=== PATIENT | male | born 1975 | race Caucasian/White ===

== ENCOUNTER 2018-03-15 11:02 | Emergency (ER) | payer OTHER ==
[2018-03-15 11:31] VITALS: BP 141/92
--- NOTE | 2018-03-15 12:22 | UC ---
Back Pain HPI - HPI Summary HPI Summary: 42 yo male presents with low back pain for the last 3 days. He tells me that he was helping his move a heavy cabinet when he felt a pull in his lower back. Since that time has had severe pain with certain movements and especially when trying to have a bowel movement due to straining. He denies radiation of pain, but does note some intermittent numbness in his anterior thighs b/l. He has been applying heat and ice and taking ibuprofen with minimal relief. 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 Denies loss of bowel/bladder control or saddle anesthesia. - History of Current Complaint Chief Complaint: UCBackPain Stated Complaint: BACK PAIN Hx Obtained From: Patient Severity Initially: Moderate Severity Currently: Moderate Pain Intensity: 7 Pain Scale Used: 0-10 Numeric - Allergies/Home Medications Allergies/Adverse Reactions: Allergies Allergy/AdvReac Type Severity Reaction Status Date / Time bee venom protein (honey bee) Allergy Anaphylatic Verified 03/15/18 11:27 Shock Penicillins Allergy Unknown Verified 03/15/18 11:27 Reaction Details Home Medications: Home Medications EPINEPHrine [Epipen 2-Jose Ramon] 0.3 mg IM SEE INSTRUCTIONS PRN 03/15/18 [History Confirmed 03/15/18] Ibuprofen TAB* [Advil TAB*] 400 mg PO Q6H PRN 03/15/18 [History Confirmed ] PMH/Surg Hx/FS Hx/Imm Hx - Additional Past Medical History Additional PMH: None - Surgical History Surgical History: None - Family History Known Family History: Positive: None - Social History Occupation: Employed Full-time Lives: With Family Alcohol Use: Occasionally Substance Use Type: None Smoking Status (MU): Light Every Day Tobacco Smoker Amount Used/How Often: 1/4 PPD When Did the Patient Quit Smoking/Using Tobacco: Since Age 23 Review of Systems Constitutional: Negative Skin: Negative Respiratory: Negative Cardiovascular: Negative Gastrointestinal: Negative Genitourinary: Negative Neurovascular: Negative Musculoskeletal: Other: - LBP Neurological: Negative Psychological: Negative All Other Systems Reviewed And Are Negative: Yes Physical Exam - Summary Physical Exam Summary: GENERAL: NAD. WDWN. No pain distress. SKIN: No rashes, sores, lesions, or open wounds. NECK: Supple. FROM. Nontender. No lymphadenopathy. CHEST: CTAB. No r/r/w. No accessory muscle use. Breathing comfortably and in no distress. CV: RRR. Without m/r/g. Pulses intact. Cap refill <2seconds MSK: Mild TTP over lumbar paraspinal muscles and right SI. Pain with flexion and extension of spine. Positive SLR on right. Strength 4/5 right LE compared to left. Symmetric dorsiflexion and plantar flexion. FROM B/L LEs. No edema. NEURO: Alert. Sensations intact B/L LEs L3-S1. PSYCH: Age appropriate behavior. Triage Information Reviewed: Yes Vital Signs: Initial Vital Signs Temp 97.9 F 03/15/18 11:25 Pulse 92 03/15/18 11:25 Resp 16 03/15/18 11:25 BP 141/92 03/15/18 11:25 Pulse Ox 98 03/15/18 11:25 Vital Signs Reviewed: Yes Back Pain Course/Dx - Course Course Of Treatment: XR: IMPRESSION: No fracture of the lumbar spine is noted. Pt was given 60mg toradol IM in the clinical setting. Rx for meloxicam and flexeril. Strongly advised to f/u with a new PCP and with PT. Off work this week. - Differential Dx/Diagnosis Provider Diagnoses: Low back pain Discharge - Sign-Out/Discharge Documenting (check all that apply): Patient Departure All imaging exams completed and their final reports reviewed: Yes - Discharge Plan Condition: Stable Disposition: HOME Prescriptions: Cyclobenzaprine TAB* [Flexeril 10 MG TAB*] 10 mg PO TID PRN #28 tab PRN Reason: Pain Meloxicam 7.5 mg PO BID PRN #30 tablet PRN Reason: Pain Patient Education Materials: Low Back Strain (ED), Lower Back Exercises (ED) Forms: *Work Release Referrals: No Primary Care Phys,NOPCP [Primary Care Provider] - [facility] [Outside] Additional Instructions: If you develop a fever, shortness of breath, chest pain, new or worsening symptoms - please call your PCP or go to the ED. Your blood pressure was high at todays visit. Please see your primary provider within 4 weeks for recheck and re-evaluation. 1) Rest and apply ice/heat to your back 2) DO NOT TAKE THE MELOXICAM WITH IBUPROFEN as these medications may interact 3) Please schedule a follow up appointment with physical therapy as soon as possible for further treatment 4) Please schedule an appointment with a primary doctor as soon as possible for recheck - Billing Disposition and Condition Condition: STABLE Disposition: Home
[2018-03-15] MEDS ORDERED: Ketorolac INJ* 60 MG/2 ML VIAL IM ONE (12:34)
--- NOTE | 2018-03-15 12:57 | RAD ---
Indication: Back pain. 5 views of lumbar spine are reviewed. The vertebral bodies appear normal in height. Disc spaces all well-preserved. Pedicles appear intact. IMPRESSION: No fracture of the lumbar spine is noted.
== END 2018-03-15 13:19 | disposition home or self-care (01) ==
LOC: UCCORT 11:02
DX: M54.5 Low back pain (principal); F17.210 Nicotine dependence, cigarettes, uncomplicated; Z88.0 Allergy status to penicillin; Z91.030 Bee allergy status; X50.9XXA Other and unspecified overexertion or strenuous movements or postures, initial encounter; Y93.9 Activity, unspecified; Y92.9 Unspecified place or not applicable
CPT/HCPCS: 72110; 96372; 99202; G0463; J1885

== ENCOUNTER 2019-05-31 07:58 | Emergency (ER) | payer OTHER ==
[2019-05-31 08:11] VITALS: BP 144/83
[2019-05-31] MEDS ORDERED: Ipratropium 0.5MG/2.5ML NEB* 0.5 MG/2.5 ML NEB.SOLN INH ONE (08:38)
[2019-05-31] MEDS ORDERED: Albuterol 2.5 MG/3 ML NEB.SOL* (0.083%) INH ONE (08:38)
[2019-05-31 08:49] LABS: Influenza A Molecular NEGATIVE (Negative); Influenza B Molecular NEGATIVE (Negative)
[2019-05-31] MEDS ORDERED: Albuterol HFA INHALER* 8 gm MDI INH ONE (09:31)
[2019-05-31] MEDS ORDERED: predniSONE TAB* 20 MG PO ONE (09:32)
--- NOTE | 2019-05-31 09:38 | UC ---
Respiratory Complaint HPI - HPI Summary HPI Summary: 43 yo male with onset of cough/fever/chills 4 days ago now wheezing no n/v/d some lateral r and l chest pain with cough cough productive at times hx of bronchitis smoker - History of Current Complaint Chief Complaint: UCGeneralIllness Stated Complaint: COUGH FEVER RIB PAIN Time Seen by Provider: 05/31/19 08:18 Hx Obtained From: Patient Onset/Duration: Gradual Onset Timing: Constant Severity Initially: Moderate Severity Currently: Moderate Pain Intensity: 6 Pain Scale Used: 0-10 Numeric Character: Cough: Nonproductive Aggravating Factors: Nothing Alleviating Factors: Nothing Associated Signs And Symptoms: Positive: Fever - non today, Chills - non today, Wheezing, Nasal Congestion - Allergies/Home Medications Allergies/Adverse Reactions: Allergies Allergy/AdvReac Type Severity Reaction Status Date / Time bee venom protein (honey bee) Allergy Anaphylatic Verified 05/31/19 08:06 Shock Penicillins Allergy Unknown Verified 05/31/19 08:06 Reaction Details Home Medications: Home Medications Acetaminophen [Tylenol] 2 tab PO ONCE 05/31/19 [History Confirmed 05/31/19] D-Methorphan/PE/Acetaminophen [Day Time Cold-Flu Liquid] 1 tab PO ONCE 05/31/19 [History Confirmed 05/31/19] Dm/Acetaminophen/Doxylamine [Nighttime Cold-Flu Liquid] 1 dose PO ONCE 05/31/19 [History Confirmed 05/31/19] PMH/Surg Hx/FS Hx/Imm Hx Previously Healthy: Yes - Surgical History Surgical History: None - Family History Known Family History: Positive: Hypertension - Social History Alcohol Use: Occasionally Substance Use Type: None Smoking Status (MU): Light Every Day Tobacco Smoker Amount Used/How Often: 1/2 PPD When Did the Patient Quit Smoking/Using Tobacco: Since Age 23 Review of Systems All Other Systems Reviewed And Are Negative: Yes Constitutional: Positive: Fever, Chills, Fatigue Skin: Positive: Negative Eyes: Positive: Negative ENT: Positive: Sinus Congestion Respiratory: Positive: Cough Cardiovascular: Positive: Negative Gastrointestinal: Positive: Negative Genitourinary: Positive: Negative Motor: Positive: Negative Neurovascular: Positive: Negative Musculoskeletal: Positive: Negative Neurological: Positive: Negative Psychological: Positive: Negative Physical Exam Triage Information Reviewed: Yes Appearance: Well-Appearing, No Pain Distress, Well-Nourished Vital Signs: Initial Vital Signs Temp 98.4 F 05/31/19 08:07 Pulse 87 05/31/19 08:07 Resp 16 05/31/19 08:07 BP 144/83 05/31/19 08:07 Pulse Ox 98 05/31/19 08:07 Vital Signs Reviewed: Yes Eyes: Positive: Conjunctiva Clear ENT: Positive: Nasal congestion, Nasal drainage, Uvula midline. Negative: Tonsillar swelling, Tonsillar exudate, Muffled voice Dental: Positive: Percussion Tenderness @ Neck: Positive: Supple, Nontender, No Lymphadenopathy Respiratory: Positive: No respiratory distress, No accessory muscle use, Wheezing Cardiovascular: Positive: RRR, No Murmur Musculoskeletal: Positive: ROM Intact, No Edema Neurological: Positive: Alert Psychological Exam: Normal Skin Exam: Normal Diagnostics - Laboratory Lab Results: influenza (-) - Radiology No standard instances Radiology Interpretation Completed By: Radiologist Summary of Radiographic Findings: sigmata of COPD Respiratory Course/Dx - Course Course Of Treatment: Improved after neb patient made aware of XR results - Differential Dx/Diagnosis Provider Diagnosis: Viral bronchitis, Elevated BP without diagnosis of hypertension, Smoker Discharge ED - Sign-Out/Discharge Documenting (check all that apply): Patient Departure All imaging exams completed and their final reports reviewed: Yes - Discharge Plan Condition: Stable Disposition: HOME Prescriptions: predniSONE TAB* [Deltasone 20 MG TAB*] 40 mg PO DAILY #8 tab Patient Education Materials: Bronchospasm (ED), How to Use a Metered-Dose Inhaler and a Spacer (ED) Forms: *Work Release Referrals: No Primary Care Phys,NOPCP [Primary Care Provider] - Additional Instructions: you need to stop smoking recheck with your MD first available appt you may need pulmonary function tests to check for COPD recheck in 2-3 days if not better - Billing Disposition and Condition Condition: STABLE Disposition: Home
== END 2019-05-31 09:54 | disposition home or self-care (01) ==
LOC: UCCORT 07:58
DX: J20.8 Acute bronchitis due to other specified organisms (principal); F17.210 Nicotine dependence, cigarettes, uncomplicated; R03.0 Elevated blood-pressure reading, without diagnosis of hypertension; R09.81 Nasal congestion; Z88.0 Allergy status to penicillin; Z91.030 Bee allergy status
CPT/HCPCS: 71046; 99213; A9270-GY; G0463; J7512